=== PATIENT | female | born 1965 | race Caucasian/White ===

== ENCOUNTER 2019-10-14 14:59 | Outpatient (CLI) | payer BC ==
--- NOTE | 2019-10-14 16:15 | MRI ---
LUMBAR SPINE MRI WITHOUT CONTRAST: 10/14/19 COMPARISON: None. HISTORY: Low back pain with right lower extremity radiculopathy. TECHNIQUE: Multiplanar and multisequence MR imaging of the lumbar spine provided without contrast. FINDINGS: On the basis of five lumbar type vertebral bodies, conus medullaris terminates at L1-2. The sagittal STIR imaging demonstrates no focal area of osseous marrow edema. T12-L1: Mild bilateral facet hypertrophy. No significant central canal or neural foraminal stenosis. L1-2: Mild bilateral facet hypertrophy. Mild disc space narrowing with dis desiccation and minimal di sc bulge. No significant central canal or neural foraminal stenosis. L2-3: Mild bilateral facet hypertrophy. There is disc space narrowing with disc desiccation and mild disc bulge. No significant central canal or neural foraminal stenosis. L3-4: Mild bilateral facet hypertrophy. Disc space narrowing with disc desiccation and mild disc bulg e. No significant central canal or neural foraminal stenosis. L4-5: Bilateral facet hypertrophy and hypertrophy of the ligamentum flavum, right greater than left. Mild central canal stenosis on the right with mild right lateral recess stenosis. Mild bilateral face t hypertrophy with mild bilateral neural foraminal stenosis. L5-S1: Bilateral facet hypertrophy noted. No significant central canal or neural foraminal stenosis. The imaged retroperitoneal structures demonstrate no acute findings. IMPRESSION: Lumbar spine degenerative changes as described above. POS: [facility]
== END 2019-10-14 15:00 | disposition home or self-care (01) ==
LOC: BICMRI 14:59
PROVIDERS: ATTEND Family Medicine
DX: M47.816 Spondylosis without myelopathy or radiculopathy, lumbar region (principal); M47.817 Spondylosis without myelopathy or radiculopathy, lumbosacral region; M47.815 Spondylosis without myelopathy or radiculopathy, thoracolumbar region
CPT/HCPCS: 72148